=== PATIENT | female | born 1950 ===

== ENCOUNTER 2020-10-12 20:55 | Emergency (ER) | payer BC, MEDICAID ==
[~2020-10-12] VITALS: Ht 165.1 cm; Wt 74.6 kg
--- NOTE | 2020-10-12 21:50 | NUR ---
EMT TECH PALCED PT IN C SPINE
[2020-10-12] MEDS ORDERED: niCARDipine-NS 40mg/200ml IVPB 200 ML IV SCH (21:55)
[2020-10-12 21:58] LABS: BASOPHILS # (AUTO) 0.1 X10'3 (0-0.2); BASOPHILS % (AUTO) 1.2 % (0-1); EOSINOPHILS # (AUTO) 0.8 X10'3 (0-0.9); EOSINOPHILS % (AUTO) 9.7 % (0-6); HEMATOCRIT 44.5 % (35.0-45.0); HEMOGLOBIN 14.9 g/dl (12.0-16.0); LYMPHOCYTES # (AUTO) 2.9 X10'3 (1.1-4.8); LYMPHOCYTES % (AUTO) 33.3 % (21-51); MEAN CORPUSCULAR HEMOGLOBIN 29.9 PG (27.0-31.0); MEAN CORPUSCULAR HGB CONC 33.4 g/dL (33.0-36.5); MEAN CORPUSCULAR VOLUME 89.7 FL (78-98); MEAN PLATELET VOLUME 9.4 FL (7.4-10.4); MONOCYTES # (AUTO) 0.6 X10'3 (0-0.9); MONOCYTES % (AUTO) 7.6 % (2-12); NEUTROPHILS # (AUTO) 4.1 X10'3 (1.8-7.7); NEUTROPHILS % (AUTO) 48.2 % (42-75); PLATELET COUNT 166 X10'3 (140-440); RED BLOOD COUNT 4.96 X10'6 (4.20-5.60); RED CELL DISTRIBUTION WIDTH 12.8 % (11.5-14.5); WHITE BLOOD COUNT 8.6 X10'3 (4.5-11.0)
[2020-10-12 22:13] LABS: ALANINE AMINOTRANSFERASE 24 U/L (12-78); ALBUMIN 3.8 G/DL (3.4-5.0); ALKALINE PHOSPHATASE 89 IU/L (46-116); ANION GAP 9 (8-16); ASPARTATE AMINO TRANSFERASE 18 U/L (10-37); BILIRUBIN,TOTAL 0.3 MG/DL (0.1-1.0); BLOOD UREA NITROGEN 11 MG/DL (7-18); CALCIUM 8.6 MG/DL (8.5-10.1); CHLORIDE 108 MMOL/L (99-107); GLUCOSE 157 MG/DL (70-104); POTASSIUM 3.7 MMOL/L (3.5-5.1); SODIUM 146 MMOL/L (135-145); TOTAL CARBON DIOXIDE 28.8 MMOL/L (24-32); TOTAL PROTEIN 7.5 G/DL (6.4-8.2); eGFR 49 ML/MIN
--- NOTE | 2020-10-12 22:30 | NUR ---
REPORT CALLED TO [facility] IVONE NAIK . ER TO ER TRANSFER FOR LEFT AND FRONTAL SUBARCHNOID BLEED AND LEFT ANTERIOR TEMPERAL LOBE HEMORRHAGE. PT NOT AT BASELINE FOR HER MEMORY PER FRIEND AT BEDSIDE HOW EVER SHE IS ALERT AND ORIENTATED X 4 , PT RATES HER PAIN 8/10 TO THE RIGHT LEG AND RIGHT SIDE OF HER HEAD . DR HIGH AWARE TALKING TO PROVIDER AT [facility] FOR ER TO ER TRANSFER . EMS AT BEDSIDE TO TRANSFER PT TO [facility]. REPORT GIVEN TO EMS BY IVONE VALDES AND THIS RECORDER . PERIMEDIC STATES HE WILL MEDICATED PT FOR NAUSEA IN ROUTE . REPORT GIVEN
[2020-10-12 22:35] VITALS: BP 182/94
== END 2020-10-12 22:38 ==
LOC: ER 20:56
DX: S80.811A Abrasion, right lower leg, initial encounter (principal); I60.9 Nontraumatic subarachnoid hemorrhage, unspecified; I62.00 Nontraumatic subdural hemorrhage, unspecified; R41.0 Disorientation, unspecified; I10 Essential (primary) hypertension; J44.9 Chronic obstructive pulmonary disease, unspecified; Z88.0 Allergy status to penicillin; W19.XXXA Unspecified fall, initial encounter; Z91.81 History of falling; Y93.01 Activity, walking, marching and hiking; Y92.89 Other specified places as the place of occurrence of the external cause; Y99.8 Other external cause status
CPT/HCPCS: 36415; 70450; 70486; 71045; 72125; 73564; 80053; 84484; 85025; 99285